=== PATIENT | male | born 1955 | race Caucasian/White ===

== ENCOUNTER 2018-11-08 16:06 | Emergency (ER) | payer OTHER ==
[~2018-11-08] VITALS: Ht 172.7 cm; Wt 94.0 kg
[2018-11-08] MEDS ORDERED: HYDROCODONE/ACETAMINOPHEN 5/325MG TABLET PO ONE (17:00)
[2018-11-08 18:00] VITALS: BP 127/79
[2018-11-08] MEDS ORDERED: TETANUS, DIPHTHERIA, PERTUSSIS VAC/PF 0.5ML (>7YR OLD) IM ONE (18:00)
== END 2018-11-08 18:00 | disposition home or self-care (01) ==
LOC: ER 16:06
DX: S50.01XA Contusion of right elbow, initial encounter (principal); S40.211A Abrasion of right shoulder, initial encounter; Z91.09 Other allergy status, other than to drugs and biological substances; V23.4XXA Motorcycle driver injured in collision with car, pick-up truck or van in traffic accident, initial encounter; Y93.89 Activity, other specified; Y92.488 Other paved roadways as the place of occurrence of the external cause
CPT/HCPCS: 73030; 73090; 90471; 90715; 99283